=== PATIENT | male | born 1960 | race African-American/Black ===

== ENCOUNTER 2018-01-25 01:01 | Emergency (ER) | payer OTHER ==
[2018-01-25 01:14] VITALS: BMI 33.8
[2018-01-25] MEDS ORDERED: MECLIZINE HCL 25 MG TABLET (FP) PO ONE (01:22)
[2018-01-25] MEDS ORDERED: SODIUM CHLORIDE 1,000 ML IV STA (01:22)
[2018-01-25] MEDS ORDERED: ONDANSETRON 4 MG/2 ML VIAL IVPUSH ONE (01:23)
--- NOTE | 2018-01-25 01:24 | PDOC ---
Attending Attestation - Resident Resident Name: Arthur Chen - ED Attending Attestation I have performed the following: I have examined & evaluated the patient, The case was reviewed & discussed with the resident, I agree w/resident's findings & plan, Exceptions are as noted <Adan Rodrigues - Last Filed: 01/25/18 01:24> - HPI HPI: 01/25/18 01:30 The patient is a 57 year old male with a past medical history of hypertension who presents to the emergency department with dizziness for 1 hours. The patient states that his symptoms were acute in onset and feel like the room is spinning around him. The patient also reports that he feels like passing out. He notes that he has experienced similar symptoms once in the past and did pass out. At that time he presented to an emergency department and the work up showed nothing acute. He denies chest pain, shortness of breath, and ear pain. - Physicial Exam PE: 01/25/18 01:30 GENERAL: Well developed, well nourished. Awake and alert. In no acute distress. HEENT: Normocephalic, atraumatic. PERRLA, EOMI. No conjunctival pallor. Sclerae are non -icteric. Moist mucous membranes. Oropharynx is clear. NECK: Supple. Full ROM. No JVD. Carotid pulses 2+ and symmetric, without bruits. No thyromegaly. No lymphadenopathy. CARDIOVASCULAR: Regular rate and rhythm. No murmurs, rubs, or gallops. Distal pulses are 2+ and symmetric. PULMONARY: No evidence of respiratory distress. Lungs clear to auscultation bilaterally. No wheezing, rales or rhonchi. ABDOMINAL: Soft. Non-tender. Non-distended. No rebound or guarding. No organomegaly. Normoactive bowel sounds. MUSCULOSKELETAL Normal range of motion at all joints. No bony deformities or tenderness. No CVA tenderness. EXTREMITIES: No cyanosis. No clubbing. No edema. No calf tenderness. SKIN: Warm and dry. Normal capillary refill. No rashes. No jaundice. NEUROLOGICAL: Alert, awake, appropriate. Cranial nerves 2-12 intact. No deficits to light touch and temperature in face, upper extremities and lower extremities. No motor deficits in the in face, upper extremities and lower extremities. Normoreflexic in the upper and lower extremities. Normal speech. Toes are downgoing bilaterally. Gait is normal without ataxia. PSYCHIATRIC: Cooperative. Good eye contact. Appropriate mood and affect. - Medical Decision Making 01/25/18 01:30 Documentation prepared by Jaspreet Mcfarlane, acting as medical policy specialist for Adan Rodrigues DO. <Jaspreet Mcfarlane - Last Filed: 01/25/18 01:30>
[2018-01-25] MEDS ORDERED: MECLIZINE HCL 25 MG TABLET (FP) ONE (01:42)
[2018-01-25] MEDS ORDERED: ONDANSETRON 4 MG/2 ML VIAL ONE (01:43)
[2018-01-25 01:55] LABS: BASO % 0.4 % (0-2.0); EOS % 3.8 % (0-4.5); HEMATOCRIT 41.1 % (35.4-49); HEMOGLOBIN 13.8 GM/dL (11.7-16.9); LYMPH % 31.1 % (8-40); MCH 29.7 pg (25.7-33.7); MCHC 33.5 g/dl (32.0-35.9); MEAN CELL VOLUME 88.7 fl (80-96); MEAN PLT VOLUME 10.1 fl (7.5-11.1); MONO % 9.6 % (3.8-10.2); NEUT % 55.1 % (42.8-82.8); PLATELET COUNT 189 K/MM3 (134-434); RBC 4.64 M/mm3 (4.00-5.60); RDW 14.4 % (11.9-15.9)
[2018-01-25 02:12] LABS: INR 1.01 (0.82-1.09); PROTHROMBIN TIME (PATIENT) 11.4 SEC (9.7-13.0)
[2018-01-25 02:20] LABS: ALBUMIN 4.3 g/dl (3.4-5.0); ANION GAP 8 (8-16); BILIRUBIN,TOTAL 0.5 mg/dL (0.2-1.0); BLOOD UREA NITROGEN 11 mg/dL (7-18); CALCIUM 9.3 mg/dL (8.5-10.1); CHLORIDE 104 mmol/L (98-107); CO2 30 mmol/L (21-32); GLUCOSE,RANDOM 147 mg/dL (74-106); MAGNESIUM 2.1 mg/dL (1.8-2.4); POTASSIUM 3.4 mmol/L (3.5-5.1); SGOT/AST 47 U/L (15-37); SGPT/ALT 67 U/L (12-78); SODIUM 142 mmol/L (136-145); TOT PROT 8.7 g/dl (6.4-8.2)
[2018-01-25 02:22] LABS: ALK PHOS 78 U/L (45-117)
--- NOTE | 2018-01-25 02:27 | PDOC ---
History of Present Illness - General Chief Complaint: Lightheaded Stated Complaint: DIZZINESS Time Seen by Provider: 01/25/18 01:13 History Source: Patient Exam Limitations: No Limitations - History of Present Illness Initial Comments: 01/25/18 02:18 Patient is a 57M with history of HTN here today complaining of 1 hour of nausea , vomiting and near syncope. Patient states that he feels lightheaded and like he is about to syncopize. He denies chest pain, shortness of breath, and abdominal pain. He denies fevers, chills, diarrhea. He states that he's had some pain in his epigastrium before, but the pain stopped so he stopped taking his medication. No pain with urination. No headache. Past History - Past Medical History Allergies/Adverse Reactions: Allergies Allergy/AdvReac Type Severity Reaction Status Date / Time No Known Allergies Allergy Verified 01/25/18 01:12 Home Medications: Ambulatory Orders Amlodipine Besylate [Norvasc -] 10 mg PO DAILY 09/24/15 Metoprolol Succinate [Toprol Xl] 50 mg PO DAILY 09/24/15 Ondansetron HCl [Zofran] 4 mg PO BID PRN #14 tablet 01/25/18 COPD: No HTN: Yes - Immunization History Immunization Up to Date: Yes - Suicide/Smoking/Psychosocial Hx Smoking History: Never smoked Have you smoked in the past 12 months: No Information on smoking cessation initiated: No Hx Alcohol Use: No Drug/Substance Use Hx: No Substance Use Type: None Hx Substance Use Treatment: No Review of Systems - Review of Systems Comments:: 01/25/18 02:22 GENERAL/CONSTITUTIONAL: No fever or chills. No weakness. HEAD, EYES, EARS, NOSE AND THROAT: No change in vision. No sore throat. CARDIOVASCULAR: No chest pain or shortness of breath RESPIRATORY: No cough, wheezing, or hemoptysis. GASTROINTESTINAL: Positive nausea, vomiting. Negative for diarrhea or constipation. GENITOURINARY: No dysuria, frequency, or change in urination. MUSCULOSKELETAL: No joint or muscle swelling or pain. No neck or back pain. SKIN: No rash NEUROLOGIC: No headache, loss of consciousness, or change in strength/sensation. ENDOCRINE: No increased thirst. No abnormal weight change HEMATOLOGIC/LYMPHATIC: No anemia, easy bleeding, or history of blood clots. ALLERGIC/IMMUNOLOGIC: No hives or skin allergy. *Physical Exam - Vital Signs Last Vital Signs Temp Pulse Resp BP Pulse Ox 98.0 F 85 20 140/88 98 01/25/18 01:12 01/25/18 01:12 01/25/18 01:12 01/25/18 01:12 01/25/18 01:12 - Physical Exam Comments: 01/25/18 02:27 GENERAL: Awake, alert, and fully oriented, vomiting HEAD: No signs of trauma, normocephalic, atraumatic EYES: PERRLA, EOMI, sclera anicteric, conjunctiva clear ENT: Auricles normal inspection, hearing grossly normal, nares patent, oropharynx clear without exudates. Moist mucosa NECK: Normal ROM, supple, no lymphadenopathy, JVD, or masses LUNGS: No distress, speaks full sentences, clear to auscultation bilaterally HEART: Regular rate and rhythm, normal S1 and S2, no murmurs, rubs or gallops, peripheral pulses normal and equal bilaterally. ABDOMEN: Soft, nontender, normoactive bowel sounds. No guarding, no rebound. No masses EXTREMITIES: Normal inspection, Normal range of motion, no edema. No clubbing or cyanosis. NEUROLOGICAL: Cranial nerves II through XII grossly intact. Normal speech, normal gait, no focal sensorimotor deficits SKIN: Warm, Dry, normal turgor, no rashes or lesions noted. ED Treatment Course - LABORATORY CBC & Chemistry Diagram: 01/25/18 01:51 01/25/18 01:51 - ADDITIONAL ORDERS Additional order review: 01/25/18 01:51 RBC 4.64 MCV 88.7 MCHC 33.5 RDW 14.4 MPV 10.1 Neutrophils % 55.1 Lymphocytes % 31.1 Monocytes % 9.6 Eosinophils % 3.8 Basophils % 0.4 - RADIOLOGY Radiology Studies Ordered: Category Date Time Status CHEST X-RAY PORTABLE* [RAD] Stat Radiology 01/25/18 01:22 Taken - Medications Given in the ED: ED Medications Discontinued Medications Generic Name Dose Route Start Last Admin Trade Name Freq PRN Reason Stop Dose Admin Meclizine HCl 25 mg 01/25/18 01:22 01/25/18 01:48 Antivert - PO 01/25/18 01:23 25 mg ONCE ONE Administration Ondansetron HCl 4 mg 01/25/18 01:23 01/25/18 01:49 Zofran Injection IVPUSH 01/25/18 01:24 4 mg ONCE ONE Administration Medical Decision Making - Medical Decision Making 01/25/18 02:27 Patient is 57M with history of HTN here today with vomiting and lightheadedness. History more consistent with with pre-syncope than vertigo, neuro exam normal. Vital signs normal. Cardiac workup initiated. Fluids, zofran and meclizine given. 01/25/18 03:17 Laboratory Tests 01/25/18 01/25/18 01/25/18 01:51 01:51 01:51 WBC 5.0 D Hgb 13.8 Plt Count 189 INR 1.01 Creatine Kinase 719 H Troponin I < 0.02 CBC normal. INR normal. CK normal. Troponin normal. EKG shows normal sinus rhythm with rate of 78bpm. No st elevations/depressions. Diffuse t-wave inversions in lateral leads. QTc prolonged to 469. LA/QRS normal. Prior EKG shows exact same pattern under name Rajesh Adames in Sep 2015. Will do second troponin. 01/25/18 03:36 Patient reassessed, feeling better. Has not vomited again since early in ED course. 01/25/18 05:18 Second trop negative. Patient reassessed, no nausea/vomiting. Will discharge home with zofran. Believe lightheadedness is secondary to patient's sensation of nausea and vomiting. Cardiac sufficiently ruled out. Given return precautions and instructions to follow up with your PCP. *DC/Admit/Observation/Transfer Diagnosis at time of Disposition: Vomiting - Discharge Dispostion Disposition: HOME Condition at time of disposition: Good Decision to Admit order: No - Prescriptions Prescriptions: Ondansetron HCl [Zofran] 4 mg PO BID PRN #14 tablet PRN Reason: Nausea - Referrals Referrals: Sweta Romo MD [Primary Care Provider] - - Patient Instructions Printed Discharge Instructions: DI for Vomiting -- Adult Additional Instructions: Please return if you have any new, worsening or concerning symptoms. Please follow up with your primary care physician in the next week. - Post Discharge Activity Forms/Work/School Notes: Back to Work
[2018-01-25 05:36] VITALS: BP 127/86; PULSE 89; TEMP 98.5
--- NOTE | 2018-01-25 11:52 | EKG ---
Test Reason : Blood Pressure : / mmHG Vent. Rate : 078 BPM Atrial Rate : 078 BPM P-R Int : 152 ms QRS Dur : 092 ms QT Int : 412 ms P-R-T Axes : 036 -04 156 degrees QTc Int : 469 ms NORMAL SINUS RHYTHM MINIMAL VOLTAGE CRITERIA FOR LVH, MAY BE NORMAL VARIANT T WAVE ABNORMALITY, CONSIDER INFEROLATERAL ISCHEMIA PROLONGED QT ABNORMAL ECG WHEN COMPARED WITH ECG OF 24-SEP-2015 12:22, QT HAS LENGTHENED Confirmed by ERROL MCKEON MD ([id number]) on 01/25/2018 11:51:56 AM Referred By: Confirmed By:ERROL MCKEON MD
== END 2018-01-25 05:36 | disposition home or self-care (01) ==
LOC: JER 01:01
PROC: 3E0337Z Introduction of Electrolytic and Water Balance Substance into Peripheral Vein, Percutaneous Approach (ICD-10-PCS; principal; 2018-01-25)
PROC: 3E033GC Introduction of Other Therapeutic Substance into Peripheral Vein, Percutaneous Approach (ICD-10-PCS; 2018-01-25)
DX: R42 Dizziness and giddiness (principal); I10 Essential (primary) hypertension
CPT/HCPCS: 36415; 71045-TC-FY; 80053; 82550; 82553; 83735; 84484; 85025; 85610; 93005; 93010; 99282-25; J7030

== ENCOUNTER 2019-03-16 13:35 | Inpatient (IN) | payer OTHER ==
[2019-03-16 13:48] VITALS: BMI 33.0
--- NOTE | 2019-03-16 14:45 | PDOC ---
History of Present Illness - General Chief Complaint: Syncope/Near Syncope Stated Complaint: ABNORMAL EKG Time Seen by Provider: 03/16/19 14:45 History Source: Patient Exam Limitations: No Limitations - History of Present Illness Initial Comments: 03/16/19 15:14 Source: Patient HPI: 58yo neversmoker man with PMH HTN, pre DM, HLD, anxiety, presenting from PCP office with EKG changes following a syncopal episode at 4AM while at work. Pt reports he was at work sitting in a chair semi-reclined while on break, he felt lightheaded and sat upright and went to stand when he felt more lightheaded and "things went black." The event was witnessed by a coworker who said he did not hit his head and was only unconscious for a short time until she put water on his face and he awoke. Two prior episodes - one remotely on an airplane, another about 1 year ago. Patient followed by Dr. Goldberg with cardiology , stress test and ECHO on file from 2015. Patient reports about 4 days of congestion and dry cough, no other symptoms. Denies fevers / chills, chest pain , shortness of breath, nausea, vomiting, diarrhea, BRBPR/tarry stools, recent long flights or imobilization, prior clots, FHx of cardiac conditions, or trauma. Reports no symptoms at time of history and physical. Good PO intake at home of food and water. Presented to PCP this morning, EKG taken with changes (T wave inversions), patient sent to ED for further evaluation. PMH: as above PSH: denies NKDA Meds: -Metoprolol ER 50 -Amlodipine 10 -Xanax 0.5 -ASA 81 Past History - Travel Traveled outside of the country in the last 30 days: No Close contact w/someone who was outside of country & ill: No - Past Medical History Allergies/Adverse Reactions: Allergies Allergy/AdvReac Type Severity Reaction Status Date / Time No Known Allergies Allergy Verified 03/16/19 13:48 Home Medications: Ambulatory Orders Amlodipine Besylate [Norvasc -] 10 mg PO DAILY 09/24/15 Metoprolol Succinate [Toprol Xl] 50 mg PO DAILY 09/24/15 Alprazolam [Xanax] 0.5 mg PO DAILY 03/16/19 Aspirin [ASA -] 81 mg PO DAILY 03/16/19 COPD: No HTN: Yes - Immunization History Immunization Up to Date: Yes - Suicide/Smoking/Psychosocial Hx Smoking History: Never smoked Have you smoked in the past 12 months: No Hx Alcohol Use: No Drug/Substance Use Hx: No Substance Use Type: None Hx Substance Use Treatment: No Review of Systems - Review of Systems Able to Perform ROS?: Yes Is the patient limited Bel[place]ian proficient: No Constitutional: No: Symptoms Reported, Chills, Diaphoresis, Fever HEENTM: No: Symptoms Reported Respiratory: Yes: Symptoms reported, Cough (dry cough for 4 days). No: Shortness of Breath, Wheezing, Productive cough Cardiac (ROS): Yes: Symptoms Reported, See HPI, Syncope, Other (abnormal EKG findings). No: Chest Pain, Irregular Heart Rate, Palpitations, Chest Tightness ABD/GI: No: Symptoms Reported Neurological: No: Headache, Numbness, Seizure, Weakness *Physical Exam - Vital Signs Last Vital Signs Temp Pulse Resp BP Pulse Ox 98.3 F 68 18 139/84 99 03/16/19 13:45 03/16/19 13:45 03/16/19 13:45 03/16/19 13:45 03/16/19 13:45 - Physical Exam Comments: 03/16/19 15:32 Vitals: reviewed, afebrile, hemodynamically stable Gen: WDWN man, standing by his stretcher, pleasant, appears stated age HEENT: Normocephalic, atraumatic, EOMI, MMM, trachea midline, speaking full sentences CV: RRR, nl s1/s2, no murmurs / rubs / gallops, no bruits Pulm: CTAb/l, breathing comfortably on room air, no wheezes / rales / rhonchi, no cough during encounter EXT: WWP, no clubbing / cyanosis / edema Neuro: Alert and oriented, MAEE, CN grossly intact Heart Score/ECG Review - History History: Slightly suspicious - Electrocardiogram EKG: Non specific repolarization disturbance - Age Age: 45-65 - Risk Factors Risk Factors Heart Score: Yes Hx Hypercholesterolemia, Yes Hx Hypertension Based on the list above the patient has:: 1-2 risk factors - Troponin Troponin: </= normal limit - Score Heart Score - Total: 3 - ECG Intrepretation Rhythm: Regular Rhythm - Austin Austin: Normal - ECG Impressions Normal ECG: No Non-specific ST Elevation: No Ischemic Changes: Yes Bradycardia: No Torsades mary Pointes: No WPW: No ED Treatment Course - LABORATORY CBC & Chemistry Diagram: 03/16/19 13:00 03/16/19 13:00 Medical Decision Making - Medical Decision Making 03/16/19 15:45 58yo neversmoker man with PMH HTN, pre DM, HLD, anxiety, presenting from PCP office with EKG changes following a syncopal episode at 4AM while at work. History concerning for true syncope with unclear etiology. EKG at time of presentation similar to prior EKG in the EMR, patient without chest pain, SOB, HDS, reducing suspicion for ACS. Low risk for PE in patient with Wells score zero, stable vitals, no risk factors. Patient without trauma, only on ASA 81, no focal neuro deficits, CT not necessary at this time. Most likely carcinogenic vs vasovagal syncope - given symptom onset while sitting prior to standing, slightly increased suspicion of cardiac cause. Heart Score 3. -CBC, CMP, Mg, Cardiac Profile -EKG, CXR 03/16/19 16:12 -No leukocytosis, no anemia -Troponin negative -CK 892, low suspicion for rhabdo, nonspecific -CXR without infiltrates, consolidation, effusion, fractures, or mediastinal widening on my read, awaiting official -EKG: HR 76, NSR, normal axis, normal intervals (AR 162, QTc 420), T wave inversions c/w prior EKG in EMR, no other concerning morphologies 03/16/19 16:20 -Spoke with Dr. Calvo, admit to Tele -Consult placed for Dr. Goldberg, cardiology Patient admitted 03/16/19 17:40 -Pt repeat troponin and EKG ordered for 18:00 -Pt reports taking all home medications in the AM, no orders necessary this evening -10mg toradol for left hip pain 03/16/19 19:23 -Repeat troponin negative -Repeat EKG unchanged from prior *DC/Admit/Observation/Transfer Diagnosis at time of Disposition: Syncope Qualifiers: Syncope type: unspecified Qualified Code(s): R55 - Syncope and collapse - Discharge Dispostion Condition at time of disposition: Guarded Decision to Admit order: Yes - Referrals - Patient Instructions - Post Discharge Activity
--- NOTE | 2019-03-16 15:04 | PDOC ---
Documentation entered by Rajesh Dowd SCRIBE, acting as scribe for Henrietta Robles MD. Henrietta Robles MD: This documentation has been prepared by the Nile castillo Daniel, SCRIBE, under my direction and personally reviewed by me in its entirety. I confirm that the documentation accurately reflects all work, treatment, procedures, and medical decision making performed by me. Attending Attestation - Resident Resident Name: Lee Rodriguez - ED Attending Attestation I have performed the following: I have examined & evaluated the patient, The case was reviewed & discussed with the resident, I agree w/resident's findings & plan - HPI HPI: 03/16/19 15:04 The patient is a 58 year old male with a past medical history of HTN, HLD, and pre diabetes here today for evaluation of syncopal episode. The patient reports that he was working and began to feel dizzy around 4 AM and sat down. He notes trying to stand up and had a syncopal episode. He denies any head strike and reports waking up soon after. Patient saw his PCP this morning who sent him here. He also notes a dry cough for 4 days. Patient denies headache. Denies fever, chills. Denies chest pain, shortness of breath. Denies nausea, vomiting, diarrhea, abdominal pain. Allergies: NKA PCP: Sweta Romo Intelligence Consultant: Wilmer Goldberg - Physicial Exam PE: 03/16/19 15:09 NAD, walking around hallway, EOMI, PERRL, MMM, nl conjunctiva, anicteric; neck supple. lungs clear, no respiratory distress, RRR, no murmur, abdomen soft nontender. Back nontender. [place] x4, no focal neuro deficits. No peripheral edema. normal color for ethnicity, WWP. ambulatory 03/16/19 16:05 - Medical Decision Making 03/16/19 14:58 See HPI for details. Prior notes reviewed, including admissions, discharges and consultations. Vital signs reviewed, wnl. Vital Signs Temp Pulse Resp BP Pulse Ox 98.3 F 68 18 139/84 99 03/16/19 13:45 03/16/19 13:45 03/16/19 13:45 03/16/19 13:45 03/16/19 13:45 DDx. syncope: considered interval abnormalities including short QTC or long QT syndrome, WPW, conduction abnormality, Brugada, ACS, PE, electrolyte disturbances, metabolic derangement. seizure, BINDERY CHIEF lesion, CVA, ICH. Considered but clinically doubt based on HPI and PE: PE or dissection, no tachy or respiratory sx or hypoxia. laboratory results and imaging reviewed, basic labs and lytes wnl, CXR_no acute pathology Cardiac panel_neg trop, reassuring, nonspecific elevation in CK level EKG normal sinus rhythm at 76 bpm, no interval abnormalities, narrow QRS, ST and T wave segments and morphology normal. T wave inversions in inferior, II, III, AVF, laterally - I, AVL and V4-6 - similar to EKG record in 2018. 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 T wave inversions in inferior, II, III, AVF, laterally - I, AVL and V4-6 - similar to EKG record in 2018.
[2019-03-16 15:25] LABS: BASO % 0.7 % (0-2.0); EOS % 4.2 % (0-4.5); HEMATOCRIT 37.4 % (35.4-49); HEMOGLOBIN 12.9 GM/dL (11.7-16.9); LYMPH % 23.9 % (8-40); MCH 31.9 pg (25.7-33.7); MCHC 34.6 g/dl (32.0-35.9); MEAN CELL VOLUME 92.1 fl (80-96); MEAN PLT VOLUME 9.4 fl (7.5-11.1); MONO % 11.4 % (3.8-10.2); NEUT % 59.8 % (42.8-82.8); PLATELET COUNT 179 K/MM3 (134-434); RBC 4.06 M/mm3 (4.00-5.60); RDW 13.8 % (11.9-15.9); WHITE BLOOD COUNT 4.7 K/mm3 (4.0-10.0)
[2019-03-16 15:56] LABS: ALBUMIN 4.3 g/dl (3.4-5.0); BILIRUBIN,TOTAL 0.6 mg/dL (0.2-1); CALCIUM 9.6 mg/dL (8.5-10.1); CREATININE 1.2 mg/dL (0.55-1.3); MAGNESIUM 2.3 mg/dL (1.8-2.4); POTASSIUM 4.7 mmol/L (3.5-5.1); TOT PROT 8.3 g/dl (6.4-8.2)
[2019-03-16] MEDS ORDERED: KETOROLAC TROMETHAMINE 30 MG/1 ML VIAL IVPUSH ONE (18:06)
[2019-03-16] MEDS ORDERED: KETOROLAC TROMETHAMINE 15 MG/ML VIAL ONE (18:06)
[2019-03-17] MEDS: amLODIPine BESYLATE 10 MG TABLET (FP) PO SCH (10:10)
[2019-03-17] MEDS: ASPIRIN COATED 81 MG TABLET.EC PO SCH (10:10)
[2019-03-17] MEDS ORDERED: guaiFENesin/D-M SUGAR-FREE/ACLHOL-FREE 118 ML BOTTLE PO PRN (11:23)
--- NOTE | 2019-03-17 11:29 | PN ---
Progress Note, Physician Chief Complaint: Pt lying in bed No chest pAIN,PAIPITATION c/o lt hip[ pain X ray hip ordered troponin negative - Current Medication List Current Medications: Active Medications Amlodipine Besylate (Norvasc -) 10 mg PO DAILY [facility] Last Admin: 03/17/19 10:10 Dose: 10 mg Aspirin (Ecotrin -) 81 mg PO DAILY [facility] Last Admin: 03/17/19 10:10 Dose: 81 mg Guaifenesin (Diabetic Tussin Dm -) 10 ml PO Q6H PRN PRN Reason: COUGH Metoprolol Succinate (Toprol Xl -) 50 mg PO DAILY [facility] Last Admin: 03/17/19 10:10 Dose: 50 mg Naproxen (Naprosyn -) 500 mg PO BID [facility] - Objective Vital Signs: Vital Signs Temperature 98.4 F 03/17/19 06:00 Pulse Rate 72 03/17/19 06:00 Respiratory Rate 20 03/17/19 06:00 Blood Pressure 115/64 03/17/19 06:00 O2 Sat by Pulse Oximetry (%) 98 03/16/19 21:45 Constitutional: Yes: No Distress Eyes: Yes: Conjunctiva Clear HENT: Yes: Atraumatic Neck: Yes: Supple, Trachea Midline Cardiovascular: Yes: Regular Rate and Rhythm Respiratory: Yes: Regular, CTA Bilaterally Gastrointestinal: Yes: Normal Bowel Sounds, Soft Musculoskeletal: Yes: WNL Extremities: Yes: WNL Edema: No Peripheral Pulses WNL: Yes Neurological: Yes: WNL, Alert ...Motor Strength: WNL Psychiatric: Yes: WNL Labs: CBC, BMP 03/16/19 13:00 03/16/19 13:00 Assessment/Plan syncope HTN abnormal ekg LT hip pain troponin negative Stable EKG Elevated CK plaN cONTINUE BP MEDS, cARDIOLOGY F/U x RAY HIP LT TAB NAPROXEN PRN FOR PAIN
--- NOTE | 2019-03-17 13:04 | HP ---
DATE OF ADMISSION: 03/16/2019 HISTORY OF PRESENT ILLNESS: The patient is a 58-year-old male with a past medical history of hypertension, pre-diabetic, hypercholesterolemia, anxiety, presented to the ER with a history of syncopal episode at work. Patient was seen at the primary care physician's office with complaints of history of syncopal episode around 4 a.m. while he was at work. Patient felt lightheaded and he was sitting in the chair and when he started to get up, patient was more lightheaded and had a blackout feeling and had a syncopal episode. It was witnessed by the co-worker and therefore the patient took the blood pressure and blood sugar at that time and it was normal. No history of loss of consciousness. No history of fall on the ground. No chest pain, no palpitation. No headache. No vomiting, no nausea. No fever. No shortness of breath. I saw the patient. He was having mild cough and cold since last 5 days but no fever. Patient had EKG done at the primary care physician's office, noticed a T-wave inversion and sent to the emergency room for further evaluation because of the syncopal episode and abnormal EKG changes. PAST MEDICAL HISTORY: As described above, hypertension, hyperlipidemia, pre-diabetic, anxiety. No known drug allergy. The patient is taking metoprolol ER 50 mg daily, amlodipine 10 mg, Xanax 0.5 mg, aspirin 81 mg. No history of recent travel. Lives with the family. PERSONAL HISTORY: No history of smoking, drug or alcohol. PAST MEDICAL HISTORY: As mentioned before, including hypertension. REVIEW OF SYSTEMS: Constitutional: No fever, no chills, no diaphoresis. Head and Neck: No symptoms reported. Respiratory: Patient complains of mild dry cough for 4 days. No shortness of breath, no wheezing, no sputum. Cardiac: History of syncopal episode. No chest pain. No irregular heartbeat, palpitation or tightness. Abdomen: No symptom. Neurological: No symptom. In the emergency room, patient's temperature was 98.3, pulse 68 per minute, respiration 18, blood pressure 136/84, pulse oximetry 99. PHYSICAL EXAMINATION: General: The patient is alert, oriented x3. Head and Neck: Normal. Neck supple, no JVD. Chest: Clear. No rhonchi, no crepitation. Cardiovascular: 1st and 2nd sound normal. No murmur, no gallop. Abdomen: Soft. No tenderness, no distention. Bowel sounds present. Extremities: No edema. Neurological: Alert, oriented x3. No apparent motor or sensory deficit. Reflexes normal. EKG done in the ER that shows heart rate 76, normal sinus rhythm, T-wave inversion in lead II and leads IV and V, ST changes. Chest x-ray: No infiltrate. LABS IN THE ER: CBC was normal. CK 892. Troponin x1 negative. Chemistry: Sodium 141, potassium 4.7, chloride 105, bicarbonate 31, BUN 19, creatinine 1.2, glucose 89, AST and ALT normal. Troponin negative. Patient admitted in telemetry because of syncopal episode and EKG changes, T-wave inversion in inferior leads II, III, aVF, and lead I, aVL and V4 to V6. As per the ER note, there were no EKG changes compared to the prior EKG done in 2016 in the ER. Because of the dizziness and syncopal episode, patient admitted in telemetry for further evaluation and cardiology consultation ordered. Patient started on home medication, Toprol and amlodipine. ADMITTING DIAGNOSIS: Syncopal episode, abnormal EKG findings. PLAN: Cardiology consult, continue the home medications. Monitor the troponin and the EKG. Patient stable on the floor. LAURA HYDE M.D. [id number]
--- NOTE | 2019-03-17 13:14 | CON.CARD ---
Consult Consult Specialty:: Cardiology Referred by:: Sweta Romo MD Reason for Consultation:: Syncope - History of Present Illness Chief Complaint: Syncope History of Present Illness: The patient is a 58 year old male with a past medical history of HTN heart disease, HLD, and pre diabetes here today for evaluation of syncopal episode. The patient reports that he was working and began to feel dizzy around 4 AM, worse with standing and sat down. He notes trying to stand up and had a syncopal episode, symptoms associated with diaphoresis, flushing, visual scotoma. He denies any head strike and reports waking up soon after. Patient denies headache. Denies fever, chills. Denies chest pain, shortness of breath. Denies nausea, vomiting, diarrhea, abdominal pain, orthopnea, palpitations, LE edema or change in exercise capacity. Allergies: NKA PCP: Sweta Romo Interactive Project Manager: Wilmer Goldberg - History Source History Provided By: Patient Limitations to Obtaining History: No Limitations - Past Medical History Cardio/Vascular: Yes: HTN - Alcohol/Substance Use Hx Alcohol Use: No - Smoking History Smoking history: Never smoked Have you smoked in the past 12 months: No Home Medications - Allergies Allergies/Adverse Reactions: Allergies Allergy/AdvReac Type Severity Reaction Status Date / Time No Known Allergies Allergy Verified 03/16/19 13:48 - Home Medications Home Medications: Ambulatory Orders Amlodipine Besylate [Norvasc -] 10 mg PO DAILY 09/24/15 Metoprolol Succinate [Toprol Xl] 50 mg PO DAILY 09/24/15 Alprazolam [Xanax] 0.5 mg PO DAILY 03/16/19 Aspirin [ASA -] 81 mg PO DAILY 03/16/19 Review of Systems - Review of Systems Neurological: reports: Dizziness, Syncope Vital Signs: Vital Signs Temperature 98.4 F 03/17/19 06:00 Pulse Rate 72 03/17/19 06:00 Respiratory Rate 20 03/17/19 06:00 Blood Pressure 115/64 03/17/19 06:00 O2 Sat by Pulse Oximetry (%) 98 03/16/19 21:45 Constitutional: Yes: No Distress, Calm Neck: Yes: Supple Respiratory: Yes: Regular, CTA Bilaterally Gastrointestinal: Yes: Normal Bowel Sounds, Soft Cardiovascular: Yes: Regular Rate and Rhythm JVD: No Carotid Bruit: No Heart Sounds: Yes: S1, S2 Edema: No - Other Data Labs, Other Data: CBC, BMP 03/16/19 13:00 03/16/19 13:00 Troponin, BNP 03/16/19 03/16/19 03/17/19 13:00 18:00 10:10 Troponin I < 0.02 < 0.02 < 0.02 Troponin, BNP 03/16/19 03/16/19 03/17/19 13:00 18:00 10:10 Troponin I < 0.02 < 0.02 < 0.02 NSR @ 63 LVH with lateral TWI seen previously Tele: NSR w/o sig pauses Ejection Fraction %: LVEF > or = 40 % Imaging - Results Chest X-ray: Report Reviewed (NAD) Problem List - Problems (1) Hypertensive heart disease Code(s): I11.9 - HYPERTENSIVE HEART DISEASE WITHOUT HEART FAILURE Qualifiers: Heart failure presence: without heart failure Qualified Code(s): I11.9 - Hypertensive heart disease without heart failure (2) Syncope Code(s): R55 - SYNCOPE AND COLLAPSE Qualifiers: Syncope type: vasovagal syncope Qualified Code(s): R55 - Syncope and collapse Assessment/Plan 09/25/2015 Echo: Normal LV and RV size and fxn, mild MR, TR 1. Vasovagal syncope with typical prodromal sxs 2. HTN/HCVD P:1. No events on telemetry thus far 2. Addressed on abortive maneuvers once prodromal sxs have been experienced, eating small meals and staying well hydrated 3. Continue Norvasc 10 qd, Toprol XL 50 qd, NSAIDs as needed 4. Anticipate d/c in AM, f/u with Dr. Wilmer Goldberg in office 5. Thank you for consultative opportunity
--- NOTE | 2019-03-17 14:21 | EKG ---
Test Reason : Blood Pressure : / mmHG Vent. Rate : 063 BPM Atrial Rate : 063 BPM P-R Int : 162 ms QRS Dur : 082 ms QT Int : 416 ms P-R-T Axes : 044 003 160 degrees QTc Int : 425 ms NORMAL SINUS RHYTHM SEPTAL INFARCT (CITED ON OR BEFORE 16-MAR-2019) T WAVE ABNORMALITY, CONSIDER LATERAL ISCHEMIA ABNORMAL ECG WHEN COMPARED WITH ECG OF 16-MAR-2019 13:38, SERIAL CHANGES OF SEPTAL INFARCT PRESENT Confirmed by MD Akil, Rajesh ([id number]) on 03/17/2019 2:20:33 PM Referred By: Confirmed By:Rajesh Barnard MD
--- NOTE | 2019-03-17 14:21 | EKG ---
Test Reason : Blood Pressure : / mmHG Vent. Rate : 076 BPM Atrial Rate : 076 BPM P-R Int : 162 ms QRS Dur : 076 ms QT Int : 374 ms P-R-T Axes : 068 006 234 degrees QTc Int : 420 ms NORMAL SINUS RHYTHM POSSIBLE LEFT ATRIAL ENLARGEMENT SEPTAL INFARCT , AGE UNDETERMINED ABNORMAL ECG WHEN COMPARED WITH ECG OF 25-JAN-2018 02:01, SEPTAL INFARCT IS NOW PRESENT T WAVE INVERSION MORE EVIDENT IN INFERIOR LEADS Confirmed by MD Akil, Rajesh ([id number]) on 03/17/2019 2:21:19 PM Referred By: Confirmed By:Rajesh Barnard MD
[2019-03-17] MEDS ORDERED: PT OWN MED DRAWER 7, Y5N ONE (20:07)
[2019-03-17] MEDS ORDERED: NAPROXEN 500 MG TABLET (FP) PO SCH (22:00)
[2019-03-18] MEDS ORDERED: PT OWN MED DRAWER 7, Y5N ONE (07:37)
[2019-03-18 08:38] LABS: BILIRUBIN,TOTAL 0.5 mg/dL (0.2-1); BLOOD UREA NITROGEN 13.4 mg/dL (7-18); CALCIUM 9.3 mg/dL (8.5-10.1); POTASSIUM 4.4 mmol/L (3.5-5.1); TOT PROT 7.7 g/dl (6.4-8.2)
[2019-03-18 09:07] VITALS: PULSE 68
[2019-03-18 09:07] LABS: BASO % 0.4 % (0-2.0); EOS % 3.4 % (0-4.5); HEMATOCRIT 38.2 % (35.4-49); HEMOGLOBIN 13.3 GM/dL (11.7-16.9); LYMPH % 23.8 % (8-40); MCH 32.1 pg (25.7-33.7); MCHC 34.7 g/dl (32.0-35.9); MEAN CELL VOLUME 92.5 fl (80-96); MEAN PLT VOLUME 9.8 fl (7.5-11.1); MONO % 9.5 % (3.8-10.2); NEUT % 62.9 % (42.8-82.8); PLATELET COUNT 168 K/MM3 (134-434); RBC 4.13 M/mm3 (4.00-5.60); RDW 13.5 % (11.9-15.9); WHITE BLOOD COUNT 4.4 K/mm3 (4.0-10.0)
--- NOTE | 2019-03-18 10:07 | PN ---
Progress Note, Physician Chief Complaint: Pt lying in bed No chest pAIN,PAIPITATION lt hip[ pain improved X ray hip negative troponin negative x 3 negative cardiology cleared for d/c and rec to f/u in the office - Current Medication List Current Medications: Active Medications Amlodipine Besylate (Norvasc -) 10 mg PO DAILY [facility] Last Admin: 03/17/19 10:10 Dose: 10 mg Aspirin (Ecotrin -) 81 mg PO DAILY [facility] Last Admin: 03/17/19 10:10 Dose: 81 mg Guaifenesin (Diabetic Tussin Dm -) 10 ml PO Q6H PRN PRN Reason: COUGH Metoprolol Succinate (Toprol Xl -) 50 mg PO DAILY [facility] Last Admin: 03/17/19 10:10 Dose: 50 mg Naproxen (Naprosyn -) 500 mg PO BID [facility] Last Admin: 03/17/19 21:52 Dose: 500 mg - Objective Vital Signs: Vital Signs Temperature 98.6 F 03/18/19 09:00 Pulse Rate 68 03/18/19 09:00 Respiratory Rate 20 03/18/19 09:00 Blood Pressure 122/79 03/18/19 09:00 O2 Sat by Pulse Oximetry (%) 99 03/18/19 09:00 Constitutional: Yes: No Distress Eyes: Yes: Conjunctiva Clear HENT: Yes: Atraumatic Neck: Yes: Supple Cardiovascular: Yes: Regular Rate and Rhythm Respiratory: Yes: Regular, CTA Bilaterally Gastrointestinal: Yes: WNL Musculoskeletal: Yes: WNL Extremities: Yes: WNL Edema: No Peripheral Pulses WNL: Yes Neurological: Yes: WNL, Alert Psychiatric: Yes: WNL, Alert Labs: CBC, BMP 03/18/19 06:50 03/18/19 06:50 Assessment/Plan syncope ? vasovagal HTN abnormal ekg LT hip pain troponin negative Stable EKG Elevated CK improving plaN d/c home cONTINUE BP MEDS, cARDIOLOGY F/U TAB NAPROXEN PRN FOR PAIN
[2019-03-18] MEDS: amLODIPine BESYLATE 10 MG TABLET (FP) PO SCH (10:41)
[2019-03-18] MEDS: ASPIRIN COATED 81 MG TABLET.EC PO SCH (10:41)
--- NOTE | 2019-03-18 10:51 | PN ---
Progress Note, Physician History of Present Illness: No further near or true syncope by report, d/zayra prior to visit and hence not seen. - Current Medication List Current Medications: Active Medications Amlodipine Besylate (Norvasc -) 10 mg PO DAILY [facility] Last Admin: 03/18/19 10:41 Dose: 10 mg Aspirin (Ecotrin -) 81 mg PO DAILY [facility] Last Admin: 03/18/19 10:41 Dose: 81 mg Guaifenesin (Diabetic Tussin Dm -) 10 ml PO Q6H PRN PRN Reason: COUGH Metoprolol Succinate (Toprol Xl -) 50 mg PO DAILY [facility] Last Admin: 03/18/19 10:41 Dose: 50 mg Naproxen (Naprosyn -) 500 mg PO BID [facility] Last Admin: 03/17/19 21:52 Dose: 500 mg - Objective Vital Signs: Vital Signs Temperature 98.6 F 03/18/19 09:00 Pulse Rate 68 03/18/19 09:00 Respiratory Rate 20 03/18/19 09:00 Blood Pressure 122/79 03/18/19 09:00 O2 Sat by Pulse Oximetry (%) 99 03/18/19 09:00 Labs: CBC, BMP 03/18/19 06:50 03/18/19 06:50 Problem List - Problems (1) Hypertensive heart disease Code(s): I11.9 - HYPERTENSIVE HEART DISEASE WITHOUT HEART FAILURE Qualifiers: Heart failure presence: without heart failure Qualified Code(s): I11.9 - Hypertensive heart disease without heart failure (2) Syncope Code(s): R55 - SYNCOPE AND COLLAPSE Qualifiers: Syncope type: vasovagal syncope Qualified Code(s): R55 - Syncope and collapse Assessment/Plan 09/25/2015 Echo: Normal LV and RV size and fxn, mild MR, TR 1. Vasovagal syncope with typical prodromal sxs 2. HTN/HCVD P:1. No events on telemetry thus far 2. Addressed on abortive maneuvers once prodromal sxs have been experienced, eating small meals and staying well hydrated 3. Continue Norvasc 10 qd, Toprol XL 50 qd, NSAIDs as needed 4. Anticipate d/c in AM, f/u with Dr. Wilmer Goldberg in office
[2019-03-18 11:11] VITALS: BP 127/88; TEMP 98.4
--- NOTE | 2019-03-20 00:48 | DS ---
DATE OF ADMISSION: 03/16/2019 DATE OF DISCHARGE: 03/18/2019 Patient is a 58-year-old male with a history of hypertension, hyperlipidemia, prediabetes, admitted with a syncopal episode to telemetry. At the time of admission, EKG showed normal sinus rhythm at a rate of 63 per minute, LVH of the lateral leads, and T-wave inversions seen in the lateral leads and inferior leads. According to comparison with the old EKG done in the emergency room in 2016, there was no significant change. Cardiac enzymes were negative. Labs: CBC was normal. CMP was normal. CK was 892 and cardiac enzymes were negative. Chest x-ray done in the emergency room was normal. X-ray of the left ribs was done because of pain. No cute fracture. Patient was monitored in telemetry. Repeat EKG shows no significant change. Cardiac enzymes x3 negative. Vital signs were stable in telemetry. Patient was treated with home medication Toprol and amlodipine. Cardiology consult called. According to the land surveyor, it was a vasovagal syncopal episode. The patient was discharged home on home medications and recommended to see the land surveyor in the office. Patient was stable at the time of discharge. Patient was discharged home. [place] [id number]
== END 2019-03-18 10:59 | disposition home or self-care (01) | DRG 312 ==
LOC: JER 13:35 → JERBED 16:22 → J4W 22:42
PROVIDERS: ADMIT Family Medicine; ATTEND Family Medicine
DX: R55 Syncope and collapse (principal); I11.9 Hypertensive heart disease without heart failure; E78.5 Hyperlipidemia, unspecified; F41.9 Anxiety disorder, unspecified; R73.03 Prediabetes; R94.31 Abnormal electrocardiogram [ECG] [EKG]
CPT/HCPCS: 36415; 71046-TC-FY; 73523-TC-FY; 80053; 82550; 82553; 83735; 84484; 85025; 93005; 93010; 99284-25

== ENCOUNTER → 2021-09-15 | Day surgery (SDC) | payer OTHER ==
[2021-09-09 14:21] VITALS: BMI 34.2
[2021-09-15 10:48] VITALS: TEMP 98.4
[2021-09-15 12:09] VITALS: BP 120/30; PULSE 68
== END | disposition home or self-care (01) ==
LOC: JASU-ENDO 04:41
PROVIDERS: ATTEND Internal Medicine Gastroenterology
PROC: 0DJD8ZZ Inspection of Lower Intestinal Tract, Via Natural or Artificial Opening Endoscopic (ICD-10-PCS; principal; 2021-09-15 10:00)
DX: Z12.11 Encounter for screening for malignant neoplasm of colon (principal); K64.8 Other hemorrhoids